=== PATIENT | female | born 1995 | race Hispanic/Latino ===

== ENCOUNTER 2019-03-05 08:56 | Emergency (ER) | payer MEDICAID, OTHER ==
[~2019-03-05 08:56] MED LIST: FERS325 PO; PREN-147 PO; PREN1TAB80 PO; TYL3 PO
[2019-03-05 09:39] LABS: RAPID GROUP A STREP POSITIVE (NEGATIVE)
[2019-03-05 09:55] LABS: APPEARANCE,URINE CLEAR (CLEAR); BILIRUBIN,URINE SMALL (NEGATIVE); COLOR,URINE YELLOW (YELLOW); GLUCOSE, URINE (UA) NEGATIVE (NEGATIVE); KETONES,URINE 40 mg/dL (NEGATIVE); LEUKOCYTE ESTERASE ,URINE NEGATIVE (NEGATIVE); NITRATE,URINE NEGATIVE (NEGATIVE); OCCULT BLOOD,URINE TRACE-INTACT (NEGATIVE); PH,URINE 6.5 (5.0-8.0); PROTEIN,URINE TRACE mg/dL (NEGATIVE)
[2019-03-05 10:00] LABS: HCG,QUAL RESULT NEGATIVE (NEGATIVE)
[2019-03-05 10:02] LABS: BACTERIA,URINE Few /HPF (None Seen); MUCUS,URINE Few LPF (None Seen); RBC,URINE 0-1 /HPF (0-1); SQUAMOUS EPITHELIAL CELL,UR Few /HPF (0-2)
[2019-03-05] MEDS ORDERED: IBUPROFEN 600 MG TABLET ONE (10:11)
== END 2019-03-05 10:37 | disposition home or self-care (01) ==
LOC: EDH 08:56
DX: J03.00 Acute streptococcal tonsillitis, unspecified (principal); Z98.890 Other specified postprocedural states; Z98.51 Tubal ligation status
CPT/HCPCS: 81001; 81025; 87804; 87880

== ENCOUNTER 2021-08-16 16:50 | Inpatient (IN) | payer OTHER ==
[~2021-08-16] VITALS: Ht 152.4 cm; Wt 90.7 kg
[2021-08-16] MEDS ORDERED: PHENAZOPYRIDINE HCL 200 MG TABLET PO ONE (17:30)
[2021-08-16] MEDS ORDERED: CEFTRIAXONE 1G VIAL IVP ONE (17:30)
[2021-08-16] MEDS ORDERED: 0.9%NACL 1000ML 1,000 ML IV SCH (17:30)
[2021-08-16 17:36] LABS: APPEARANCE,URINE SL CLOUDY (CLEAR); BILIRUBIN,URINE NEGATIVE (NEGATIVE); COLOR,URINE YELLOW (YELLOW); GLUCOSE, URINE (UA) NEGATIVE (NEGATIVE); KETONES,URINE 15 mg/dL (NEGATIVE); LEUKOCYTE ESTERASE ,URINE SMALL (NEGATIVE); NITRATE,URINE NEGATIVE (NEGATIVE); OCCULT BLOOD,URINE TRACE-INTACT (NEGATIVE); PROTEIN,URINE 30 mg/dL (NEGATIVE)
[2021-08-16 17:39] LABS: HCG,QUAL RESULT NEGATIVE (NEGATIVE)
[2021-08-16 17:47] LABS: WBC,URINE 26-50 /HPF (0-1)
[2021-08-16 17:48] LABS: BACTERIA,URINE Few /HPF (None Seen); SQUAMOUS EPITHELIAL CELL,UR Few /HPF (0-2)
[2021-08-16 17:49] LABS: BASOPHILS % (AUTO) 0.2 % (0.0-5.0); EOSINOPHILS % (AUTO) 0.1 % (0.0-8.0); HEMATOCRIT 40.3 % (36-48); LYMPHOCYTES % (AUTO) 9.2 % (21.0-51.0); MONOCYTES % (AUTO) 5.5 % (3.0-13.0); NEUTROPHILS % (AUTO) 84.8 % (40.0-77.0); PLATELET COUNT (AUTO) 226 K/uL (130-400); RED BLOOD CELL COUNT(AUTO) 4.58 MIL/uL (4.00-5.50); RED CELL DISTRIBUTION WIDTH 12.3 % (11.0-15.5)
[2021-08-16 17:50] LABS: MUCUS,URINE Few LPF (None Seen)
[2021-08-16] MEDS ORDERED: ACETAMINOPHEN 500 MG TABLET PO ONE (18:00)
[2021-08-16] MEDS ORDERED: IBUPROFEN 600 MG TABLET PO ONE (18:00)
[2021-08-16 18:11] LABS: POTASSIUM 3.5 mmol/L (3.5-5.1)
[2021-08-16 18:15] LABS: ALBUMIN 3.9 g/dL (3.5-5.0); BILIRUBIN,TOTAL 0.7 mg/dL (0.2-1.0); TOTAL PROTEIN, SERUM 8.5 g/dL (6.0-8.3)
[2021-08-16] MEDS ORDERED: PHEN-847 PO (18:50)
[2021-08-16] MEDS ORDERED: CEPH500B PO (18:50)
[2021-08-16] MEDS ORDERED: ACET-2247 PO (18:50)
[2021-08-16] MEDS ORDERED: LACTATED RINGERS 1000ML 1,000 ML IV SCH (19:00)
[2021-08-16] MEDS: LACTATED RINGERS 1000ML 1,000 ML IV SCH ×2 (19:30→23:25)
[2021-08-16] MEDS ORDERED: DiphenhydrAMINE HCL 50 MG/ML VIAL IV PRN (19:30)
[2021-08-16] MEDS ORDERED: ONDANSETRON 4MG INJ IV PRN (19:30)
[2021-08-16] MEDS ORDERED: ACETAMINOPHEN 325 MG TAB PO PRN (19:30)
[2021-08-16] MEDS ORDERED: MORPHINE 2 MG SYG IV PRN (19:30)
[2021-08-16] MEDS ORDERED: LACTATED RINGERS 1000ML IV SCH (21:30)
[2021-08-16 22:36] VITALS: BP 113/69
[2021-08-16] MEDS ORDERED: ACET-2123 PO (22:42)
[2021-08-16] MEDS: KETOROLAC 15MG/ML VIAL (15MG/ML) IV PRN (23:24)
[2021-08-17] MEDS: PHENAZOPYRIDINE HCL 200 MG TABLET PO SCH ×2 (00:06→08:12)
[2021-08-17 00:35] VITALS: BP 126/81
[2021-08-17] MEDS: ACETAMINOPHEN 325 MG TAB PO PRN ×2 (00:43→05:39)
[2021-08-17 03:37] VITALS: BP 118/69
[2021-08-17 04:08] LABS: BASOPHILS % (AUTO) 0.2 % (0.0-5.0); EOSINOPHILS % (AUTO) 1.1 % (0.0-8.0); LYMPHOCYTES % (AUTO) 26.1 % (21.0-51.0); MEAN CORPUSCULAR HEMOGLOBIN 30.1 pg (27.0-33.0); MEAN CORPUSCULAR HGB CONC 33.1 g/dL (32.0-36.0); MEAN CORPUSCULAR VOLUME 91.1 fL (79-99); MONOCYTES % (AUTO) 8.7 % (3.0-13.0); NEUTROPHILS % (AUTO) 63.5 % (40.0-77.0); PLATELET COUNT (AUTO) 192 K/uL (130-400); RED BLOOD CELL COUNT(AUTO) 3.95 MIL/uL (4.00-5.50); RED CELL DISTRIBUTION WIDTH 12.5 % (11.0-15.5); WHITE BLOOD COUNT (AUTO) 8.5 K/uL (4.8-10.8)
[2021-08-17 04:24] LABS: CREATININE 0.8 mg/dL (0.5-1.5); POTASSIUM 3.6 mmol/L (3.5-5.1)
[2021-08-17] MEDS: KETOROLAC 15MG/ML VIAL (15MG/ML) IV PRN (06:45)
[2021-08-17] MEDS: LACTATED RINGERS 1000ML 1,000 ML IV SCH (08:12)
[2021-08-17 08:17] VITALS: BP 106/71
[2021-08-17] MEDS ORDERED: LEVOFLOXACIN 750 MG/D5W 150 ML 150 ML IV SCH (09:00)
[2021-08-17] MEDS ORDERED: LEVO500T90 PO (09:13)
== END 2021-08-17 10:10 | disposition home or self-care (01) | DRG 872 ==
LOC: EDH 16:50 → OBSVTOIN 16:51 → EDHIP 16:51 → WSH 22:32
PROVIDERS: ADMIT Hospitalist; ATTEND Hospitalist
DX: A41.9 Sepsis, unspecified organism (principal); N10 Acute pyelonephritis; Z20.822 Contact with and (suspected) exposure to COVID-19; E86.0 Dehydration; Z83.3 Family history of diabetes mellitus; Z82.49 Family history of ischemic heart disease and other diseases of the circulatory system; Z88.8 Allergy status to other drugs, medicaments and biological substances
CPT/HCPCS: 36415; 74176; 80048; 80053; 81001; 81025; 83605; 85025; 87040; 87077; 87088; 87186; 87635; 87804; C9803; G0378; J0696; J1885; J1956; J2405; J7030; J7120

== ENCOUNTER 2021-11-29 01:18 | Emergency (ER) | payer OTHER ==
[~2021-11-29] VITALS: Ht 152.4 cm; Wt 91.6 kg
[~2021-11-29 01:18] MED LIST changes: +ACET-2123 PO; -FERS325 PO; +LEVO-70 PO; -PREN-147 PO; -PREN1TAB80 PO; -TYL3 PO
[2021-11-29 01:46] LABS: BASOPHILS % (AUTO) 0.6 % (0.0-5.0); EOSINOPHILS % (AUTO) 2.9 % (0.0-8.0); HEMATOCRIT 40.3 % (36-48); LYMPHOCYTES % (AUTO) 45.3 % (21.0-51.0); MEAN CORPUSCULAR HEMOGLOBIN 30.3 pg (27.0-33.0); MEAN CORPUSCULAR HGB CONC 34.7 g/dL (32.0-36.0); MEAN CORPUSCULAR VOLUME 87.2 fL (79-99); MONOCYTES % (AUTO) 7.4 % (3.0-13.0); NEUTROPHILS % (AUTO) 43.6 % (40.0-77.0); PLATELET COUNT (AUTO) 227 K/uL (130-400); RED BLOOD CELL COUNT(AUTO) 4.62 MIL/uL (4.00-5.50); RED CELL DISTRIBUTION WIDTH 12.3 % (11.0-15.5); WHITE BLOOD COUNT (AUTO) 8.4 K/uL (4.8-10.8)
[2021-11-29 02:03] LABS: CREATININE 0.9 mg/dL (0.5-1.5); POTASSIUM 3.9 mmol/L (3.5-5.1)
[2021-11-29 02:06] LABS: B-TYPE NATRIURETIC PEPTIDE 8 pg/mL (0-100)
[2021-11-29 02:14] LABS: ALBUMIN 4.1 g/dL (3.5-5.0); MAGNESIUM 1.7 mg/dL (1.80-2.40); TOTAL PROTEIN, SERUM 8.2 g/dL (6.0-8.3)
[2021-11-29] MEDS: MAGNESIUM OXIDE 400 MG TABLET PO SCH (02:46)
[2021-11-29] MEDS: IBUPROFEN 600 MG TABLET PO ONE (02:47)
[2021-11-29] MEDS: FENTANYL CITRATE PF 50 MCG/1 ML 2ML VIAL IVP ONE (03:36)
[2021-11-29] MEDS ORDERED: IBUP-2070 PO (04:32)
[2021-11-29 04:48] VITALS: BP 119/88
== END 2021-11-29 04:50 | disposition home or self-care (01) ==
LOC: EDH 01:18
DX: M94.0 Chondrocostal junction syndrome [Tietze] (principal); E83.42 Hypomagnesemia; R03.0 Elevated blood-pressure reading, without diagnosis of hypertension; E66.9 Obesity, unspecified; Z88.5 Allergy status to narcotic agent; Z79.1 Long term (current) use of non-steroidal anti-inflammatories (NSAID); Z68.39 Body mass index [BMI] 39.0-39.9, adult
CPT/HCPCS: 99285; 96374; 71045; 82550; 83735; 84484; 80053; 83880; 83690; 85025; 85378; 81025; 36415; 93005; J3010

== ENCOUNTER 2022-12-31 21:02 | Emergency (ER) | payer OTHER ==
[~2022-12-31] VITALS: Ht 152.4 cm; Wt 73.5 kg
[~2022-12-31 21:02] MED LIST changes: +IBUP-2070 PO
[2022-12-31 21:18] VITALS: BP 120/68; PULSE 85; RESP 18
[2022-12-31 22:24] LABS: BASOPHILS # (AUTO) 0.05 K/uL (0.00-0.20); BASOPHILS % (AUTO) 0.5 % (0.0-5.0); HEMATOCRIT 41.3 % (36-48); IMMATURE GRANULOCYTE ABSOLUTE 0.03 K/uL (0-1); LYMPHOCYTES # (AUTO) 3.3 K/uL (1.0-4.8); LYMPHOCYTES % (AUTO) 32.7 % (21.0-51.0); MEAN CORPUSCULAR HEMOGLOBIN 29.5 pg (27.0-33.0); MEAN CORPUSCULAR HGB CONC 33.9 g/dL (32.0-36.0); MEAN CORPUSCULAR VOLUME 86.9 fL (79-99); MONOCYTES # (AUTO) 0.8 K/uL (0.1-1.0); NEUTROPHILS # (AUTO) 5.7 K/uL (1.8-7.7); NEUTROPHILS % (AUTO) 56.5 % (40.0-77.0); PLATELET COUNT (AUTO) 257 K/uL (130-400); RED BLOOD CELL COUNT(AUTO) 4.75 MIL/uL (4.00-5.50); RED CELL DISTRIBUTION WIDTH 12.2 % (11.0-15.5)
[2022-12-31 22:28] LABS: APPEARANCE,URINE CLEAR (CLEAR); BILIRUBIN,URINE NEGATIVE (NEGATIVE); COLOR,URINE LIGHT-YELLOW (YELLOW); GLUCOSE, URINE (UA) NEGATIVE (NEGATIVE); KETONES,URINE NEGATIVE (NEGATIVE); LEUKOCYTE ESTERASE ,URINE 25 Leu/uL (NEGATIVE); NITRATE,URINE NEGATIVE (NEGATIVE); OCCULT BLOOD,URINE NEGATIVE (NEGATIVE); PH,URINE 5.5 (5.0-8.0); PROTEIN,URINE 10 mg/dL (NEGATIVE); UROBILINOGEN,URINE 0.2 mg/dL (0.2-1.0)
[2022-12-31 22:32] LABS: CREATININE 0.7 mg/dL (0.5-1.5); POTASSIUM 3.2 mmol/L (3.5-5.1)
[2022-12-31 22:34] LABS: HCG,QUALITATIVE URINE NEGATIVE (NEGATIVE)
[2022-12-31 22:35] LABS: ADD UA MICROSCOPIC YES
[2022-12-31 22:36] LABS: BACTERIA,URINE RARE /HPF (None Seen); MUCUS,URINE RARE LPF (None Seen); SQUAMOUS EPITHELIAL CELL,UR FEW /HPF (0-2)
[2022-12-31 22:39] LABS: ALBUMIN 4.1 g/dL (3.5-5.0); BILIRUBIN,TOTAL 0.3 mg/dL (0.2-1.0); TOTAL PROTEIN, SERUM 8.2 g/dL (6.0-8.3)
[2022-12-31] MEDS ORDERED: CEPH500B PO (22:42)
[2022-12-31] MEDS ORDERED: IBUP-2070 PO (22:42)
[2022-12-31] MEDS ORDERED: POTASSIUM BICARB/CIT AC 25 MEQ TABLET.EFF PO ONE (23:00)
== END 2022-12-31 23:05 | disposition home or self-care (01) ==
LOC: EDH 21:02
DX: N39.0 Urinary tract infection, site not specified (principal); M79.641 Pain in right hand; M79.89 Other specified soft tissue disorders; E66.01 Morbid (severe) obesity due to excess calories; Z68.31 Body mass index [BMI] 31.0-31.9, adult; Z79.899 Other long term (current) drug therapy; Z98.890 Other specified postprocedural states; Z88.5 Allergy status to narcotic agent
CPT/HCPCS: 36415; 80053; 81001; 81025; 85025; 85378; 93971

== ENCOUNTER 2023-04-13 13:10 | Emergency (ER) | payer OTHER ==
[~2023-04-13] VITALS: Ht 152.4 cm; Wt 74.8 kg
[~2023-04-13 13:10] MED LIST changes: +CEPH500B PO
[2023-04-13 14:17] VITALS: BP 140/90; PULSE 129; RESP 18; O2SAT 100
[2023-04-13 14:45] LABS: RAPID GROUP A STREP negative (NEGATIVE)
[2023-04-13 14:54] LABS: INFLUENZA TYPE A Negative For Type A (NEGATIVE); INFLUENZA TYPE B Negative For Type B (NEGATIVE)
[2023-04-13 15:02] LABS: SARS-CoV-2, RNA, NAAT POSITIVE SARS CoV-2 (NEGATIVE)
[2023-04-14] MEDS ORDERED: CEPH500B PO (22:34)
[2023-04-14] MEDS ORDERED: AMOX1TAB16 PO (23:50)
== END 2023-04-13 16:24 | disposition left against medical advice (07) ==
LOC: EDH 13:10
DX: R09.81 Nasal congestion (principal); Z53.21 Procedure and treatment not carried out due to patient leaving prior to being seen by health care provider; Z20.822 Contact with and (suspected) exposure to COVID-19
CPT/HCPCS: 99281; 87635; 87880; 87804 ×2; C9803

== ENCOUNTER 2023-04-14 19:26 | Emergency (ER) | payer OTHER ==
[~2023-04-14] VITALS: Ht 152.4 cm; Wt 75.3 kg
[2023-04-14 21:09] LABS: HCG,QUALITATIVE URINE NEGATIVE (NEGATIVE)
[2023-04-14 21:10] LABS: APPEARANCE,URINE CLOUDY (CLEAR); BILIRUBIN,URINE NEGATIVE (NEGATIVE); COLOR,URINE YELLOW (YELLOW); GLUCOSE, URINE (UA) NEGATIVE (NEGATIVE); KETONES,URINE NEGATIVE (NEGATIVE); LEUKOCYTE ESTERASE ,URINE 75 Leu/uL (NEGATIVE); NITRATE,URINE NEGATIVE (NEGATIVE); OCCULT BLOOD,URINE NEGATIVE (NEGATIVE); PH,URINE 6.5 (5.0-8.0); PROTEIN,URINE 70 mg/dL (NEGATIVE); UROBILINOGEN,URINE 0.2 mg/dL (0.2-1.0)
[2023-04-14 21:11] LABS: ADD UA MICROSCOPIC YES
[2023-04-14 21:15] LABS: BACTERIA,URINE MOD /HPF (None Seen); HYALINE CASTS, URINE 0-1 /LPF (0-1 /LPF); MUCUS,URINE RARE LPF (None Seen); OTHER CASTS, URINE 3 /LPF (None Seen); SQUAMOUS EPITHELIAL CELL,UR MOD /HPF (0-2)
[2023-04-14] MEDS ORDERED: CEPH500B PO (22:34)
[2023-04-14 23:17] LABS: INFLUENZA TYPE A Negative For Type A (NEGATIVE); INFLUENZA TYPE B Negative For Type B (NEGATIVE)
[2023-04-14 23:47] LABS: RAPID GROUP A STREP positive (NEGATIVE)
[2023-04-14] MEDS ORDERED: AMOX1TAB16 PO (23:50)
[2023-04-15 00:04] VITALS: BP 124/72; PULSE 102; RESP 18; O2SAT 98
== END 2023-04-15 00:06 | disposition home or self-care (01) ==
LOC: EDH 19:26
DX: N39.0 Urinary tract infection, site not specified (principal); J02.0 Streptococcal pharyngitis; E66.9 Obesity, unspecified; Z88.5 Allergy status to narcotic agent; Z68.32 Body mass index [BMI] 32.0-32.9, adult; Z20.822 Contact with and (suspected) exposure to COVID-19
CPT/HCPCS: 81001; 81025; 87088; 87804; 87880

== ENCOUNTER 2024-02-25 04:35 | Emergency (ER) | payer BC, OTHER ==
[~2024-02-25] VITALS: Ht 152.4 cm; Wt 77.1 kg
[~2024-02-25 04:35] MED LIST changes: +AMOX1TAB16 PO
[2024-02-25 04:53] VITALS: TEMP 98.5
[2024-02-25 04:56] LABS: BASOPHILS # (AUTO) 0.03 K/uL (0.00-0.20); BASOPHILS % (AUTO) 0.3 % (0.0-5.0); EOSINOPHILS # (AUTO) 0.28 K/uL (0.00-0.70); EOSINOPHILS % (AUTO) 3.3 % (0.0-8.0); HEMATOCRIT 39.5 % (36-48); IMMATURE GRANULOCYTE ABSOLUTE 0.02 K/uL (0-1); LYMPHOCYTES # (AUTO) 3.3 K/uL (1.0-4.8); LYMPHOCYTES % (AUTO) 38.5 % (21.0-51.0); MEAN CORPUSCULAR HEMOGLOBIN 29.6 pg (27.0-33.0); MEAN CORPUSCULAR HGB CONC 33.9 g/dL (32.0-36.0); MEAN CORPUSCULAR VOLUME 87.4 fL (79-99); MONOCYTES # (AUTO) 0.8 K/uL (0.1-1.0); MONOCYTES % (AUTO) 9.4 % (3.0-13.0); NEUTROPHILS # (AUTO) 4.1 K/uL (1.8-7.7); NEUTROPHILS % (AUTO) 48.3 % (40.0-77.0); PLATELET COUNT (AUTO) 258 K/uL (130-400); RED BLOOD CELL COUNT(AUTO) 4.52 MIL/uL (4.00-5.50); RED CELL DISTRIBUTION WIDTH 12.1 % (11.0-15.5); WHITE BLOOD COUNT (AUTO) 8.6 K/uL (4.8-10.8)
[2024-02-25 05:05] LABS: APPEARANCE,URINE CLOUDY (CLEAR); BILIRUBIN,URINE NEGATIVE (NEGATIVE); CARBON DIOXIDE 32 mmol/L (21-32); CHLORIDE 101 mmol/L (101-111); COLOR,URINE LIGHT-YELLOW (YELLOW); CREATININE 0.8 mg/dL (0.5-1.0); GLOMERULAR FILTR. RATE CALC 102 mL/min (>90); GLUCOSE, URINE (UA) NEGATIVE (NEGATIVE); GLUCOSE,RANDOM 111 mg/dL (70-105); KETONES,URINE NEGATIVE (NEGATIVE); LEUKOCYTE ESTERASE ,URINE 25 Leu/uL (NEGATIVE); NITRATE,URINE NEGATIVE (NEGATIVE); OCCULT BLOOD,URINE NEGATIVE (NEGATIVE); POTASSIUM 3.4 mmol/L (3.5-5.1); PROTEIN,URINE NEGATIVE (NEGATIVE); SODIUM SERUM 139 mmol/L (136-145); UREA NITROGEN, BLOOD 8 mg/dL (7-18); UROBILINOGEN,URINE 0.2 mg/dL (0.2-1.0)
[2024-02-25 05:07] LABS: ADD UA MICROSCOPIC YES; HCG,QUALITATIVE URINE NEGATIVE (NEGATIVE)
[2024-02-25 05:11] LABS: ALANINE AMINOTRANSFERASE 32 U/L (12-78); ALBUMIN 3.6 g/dL (3.5-5.0); ASPARTATE AMINOTRANSFERASE 13 U/L (10-37); BILIRUBIN,DIRECT < 0.1 mg/dL (0.0-0.3); BILIRUBIN,TOTAL 0.2 mg/dL (0.2-1.0); TOTAL PROTEIN, SERUM 7.6 g/dL (6.0-8.3)
[2024-02-25 05:14] LABS: MUCUS,URINE RARE LPF (None Seen); RBC,URINE 0-1 /HPF (0-1); SQUAMOUS EPITHELIAL CELL,UR FEW /HPF (0-2)
[2024-02-25] MEDS: ketOROlac 30MG VIAL (30MG/ML) IVP ONE (05:22)
[2024-02-25] MEDS: 0.9%NACL 1000ML 1,000 ML IV ONE ×2 (05:22→05:23)
[2024-02-25] MEDS: ondanSETRON 4MG INJ IVP ONE (05:22)
[2024-02-25] MEDS: ondanSETRON 4MG INJ ONE (05:23)
[2024-02-25] MEDS: ketOROlac 30MG VIAL (30MG/ML) ONE (05:23)
[2024-02-25] MEDS: hydroMORPHone 0.5 MG SYG (0.5MG/0.5ML) IVP ONE (05:44)
[2024-02-25 06:25] VITALS: BP 146/86; PULSE 74; RESP 20; O2SAT 99
[2024-02-25] MEDS ORDERED: DICY20TA2 PO (06:41)
[2024-02-25] MEDS ORDERED: ACET-2079 PO (06:41)
[2024-02-25] MEDS ORDERED: ONDA-243 PO (06:41)
== END 2024-02-25 07:09 | disposition home or self-care (01) ==
LOC: EDH 04:35
DX: K80.20 Calculus of gallbladder without cholecystitis without obstruction (principal); E66.9 Obesity, unspecified; Z88.5 Allergy status to narcotic agent; Z98.51 Tubal ligation status; Z79.899 Other long term (current) drug therapy; Z98.890 Other specified postprocedural states
CPT/HCPCS: 99284; 96374; 76705; 96375; 96361; 80076; 80048; 83690; 85025; 81001; 81025; 36415; J7030; J2405; J1885; J1171